=== PATIENT | male | born 1960 | race Hispanic/Latino ===

== ENCOUNTER 2018-01-15 04:06 | Emergency (ER) | payer BC ==
[2018-01-15] MEDS ORDERED: ONDANSETRON HCL 4 MG/2 ML VIAL ONE (04:32)
[2018-01-15] MEDS ORDERED: SODIUM CHLORIDE 0.9% 1000ML 1,000 ML IV ONE (04:32)
[2018-01-15 04:51] LABS: BASOPHILS % (AUTO) 0.6 % (0.0-5.0); EOSINOPHILS % (AUTO) 0.7 % (0.0-8.0); LYMPHOCYTES % (AUTO) 11.7 % (21.0-51.0); MEAN CORPUSCULAR HEMOGLOBIN 29.7 pg (27.0-33.0); MEAN CORPUSCULAR HGB CONC 35.2 g/dL (32.0-36.0); MEAN CORPUSCULAR VOLUME 84.5 fL (79-99); MONOCYTES % (AUTO) 3.9 % (3.0-13.0); NEUTROPHILS % (AUTO) 83.1 % (40.0-77.0); PLATELET COUNT (AUTO) 267 K/uL (130-400); RED BLOOD CELL COUNT(AUTO) 5.09 MIL/uL (4.50-6.20); RED CELL DISTRIBUTION WIDTH 13.1 % (11.0-15.5)
[2018-01-15 04:59] LABS: CREATININE 0.8 mg/dL (0.5-1.5); POTASSIUM 3.8 mmol/L (3.5-5.1)
[2018-01-15 05:02] LABS: INR 0.96 (0.85-1.15); PARTIAL THROMBOPLASTIN TIME 22.9 SEC (26.3-35.5); PROTHROMBIN TIME 10.1 SEC (9.6-11.6)
[2018-01-15 05:06] LABS: ALBUMIN 3.9 g/dL (3.5-5.0); BILIRUBIN,TOTAL 0.5 mg/dL (0.2-1.0); TOTAL PROTEIN, SERUM 7.7 g/dL (6.0-8.3)
== END 2018-01-15 06:26 | disposition home or self-care (01) ==
LOC: EDH 04:06
DX: R51 Headache (principal); R42 Dizziness and giddiness; R11.2 Nausea with vomiting, unspecified; I10 Essential (primary) hypertension; E78.5 Hyperlipidemia, unspecified; E11.9 Type 2 diabetes mellitus without complications; R79.1 Abnormal coagulation profile
CPT/HCPCS: 36415; 70450; 80053; 82550; 83690; 84484; 85025; 85610; 85730; 93005; 96361; 96374; 99285; J2405; J7030

== ENCOUNTER → 2020-01-28 | Outpatient (CLI) | payer OTHER | END | disposition home or self-care (01) | LOC: RAH 10:32 | PROVIDERS: ATTEND Nurse Practitioner Adult Health | DX: Z13.6 Encounter for screening for cardiovascular disorders (principal) | CPT/HCPCS: 75571 ==

== ENCOUNTER 2020-09-12 10:18 | Inpatient (IN) | payer BC, OTHER ==
[~2020-09-12] VITALS: Ht 167.6 cm; Wt 87.4 kg
[2020-09-12 10:41] LABS: EOSINOPHILS % (AUTO) 3.1 % (0.0-8.0); HEMATOCRIT 40.7 % (42-54); LYMPHOCYTES % (AUTO) 19.3 % (21.0-51.0); MEAN CORPUSCULAR HEMOGLOBIN 28.9 pg (27.0-33.0); MEAN CORPUSCULAR HGB CONC 34.4 g/dL (32.0-36.0); MEAN CORPUSCULAR VOLUME 83.9 fL (79-99); MONOCYTES % (AUTO) 8.9 % (3.0-13.0); NEUTROPHILS % (AUTO) 67.5 % (40.0-77.0); PLATELET COUNT (AUTO) 217 K/uL (130-400); RED BLOOD CELL COUNT(AUTO) 4.85 MIL/uL (4.50-6.20); RED CELL DISTRIBUTION WIDTH 12.3 % (11.0-15.5); WHITE BLOOD COUNT (AUTO) 5.9 K/uL (4.8-10.8)
[2020-09-12 10:53] LABS: CREATININE 0.9 mg/dL (0.5-1.5)
[2020-09-12 10:55] LABS: PROTHROMBIN TIME 10.9 SEC (9.6-11.6)
[2020-09-12 10:56] LABS: PARTIAL THROMBOPLASTIN TIME 24.9 SEC (26.3-35.5)
[2020-09-12 11:02] LABS: ALBUMIN 3.8 g/dL (3.5-5.0); BILIRUBIN,TOTAL 0.4 mg/dL (0.2-1.0); TOTAL PROTEIN, SERUM 7.6 g/dL (6.0-8.3)
[2020-09-12] MEDS ORDERED: ASPIRIN 325MG EC TAB PO ONE (14:53)
[2020-09-12] MEDS ORDERED: INSULIN HUMULIN R 100 UNIT/ML 3ML ONE (17:53)
[2020-09-12] MEDS: ATORVASTATIN 20 MG TABLET PO SCH (21:00)
[2020-09-13] MEDS ORDERED: FAMOTIDINE 20MG VIAL IV ONE ×2 (08:18→20:05)
[2020-09-13] MEDS ORDERED: ASPIRIN 325MG EC TAB PO ONE (08:18)
[2020-09-13 08:23] LABS: HEMOGLOBIN A1C 11.8 % (4.0-6.0)
[2020-09-13 08:24] LABS: CHOLESTEROL 199 mg/dL (<200); HDL CHOLESTEROL 32 mg/dL (29-71); LDL DIRECT 109 mg/dL (0-99); TRIGLYCERIDES 380 mg/dL (30-200)
[2020-09-13] MEDS ORDERED: IOHEXOL-350 75 ML VIAL IV ONE (11:25)
[2020-09-13] MEDS ORDERED: ENOXAPARIN SODIUM 40 MG/0.4 ML SYRINGE SQ ONE (12:27)
[2020-09-13] MEDS ORDERED: INSULIN HUMULIN R 100 UNIT/ML 3ML ONE ×3 (12:28→20:06)
[2020-09-13] MEDS ORDERED: ATORVASTATIN 20 MG TABLET ONE (20:04)
[2020-09-13] MEDS: INSULIN GLARGINE 100 UNITS/ML 10 ML VIAL SQ SCH (22:15)
[2020-09-13] MEDS ORDERED: AMLODIPINE 5 MG TAB ONE (23:03)
[2020-09-14] MEDS: AMLODIPINE 5 MG TAB PO SCH (09:00)
[2020-09-14] MEDS: LISINOPRIL 10 MG TABLET PO SCH (09:00)
[2020-09-14] MEDS: ASPIRIN 325MG EC TAB PO SCH (09:00)
[2020-09-14] MEDS: ENOXAPARIN SODIUM 40 MG/0.4 ML SYRINGE SQ SCH (09:00)
[2020-09-14] MEDS ORDERED: ASPIRIN 325 MG TABLET ONE (09:19)
[2020-09-14] MEDS ORDERED: HYDRALAZINE 25MG TABLET ONE ×2 (09:19→20:17)
[2020-09-14] MEDS ORDERED: LISINOPRIL 5 MG TABLET ONE (09:19)
[2020-09-14] MEDS ORDERED: ATORVASTATIN 20 MG TABLET ONE ×2 (09:20→20:18)
[2020-09-14] MEDS ORDERED: AMLODIPINE 5 MG TAB ONE (09:20)
[2020-09-14] MEDS ORDERED: CARVEDILOL 25 MG TABLET PO ONE ×2 (09:20→20:18)
[2020-09-14] MEDS ORDERED: ENOXAPARIN SODIUM 40 MG/0.4 ML SYRINGE SQ ONE (09:21)
[2020-09-14] MEDS ORDERED: CARV25TA PO ×2 (11:37→22:49)
[2020-09-14] MEDS ORDERED: GADODIAMIDE 10 MMOL/20 ML VIAL IV ONE (13:17)
[2020-09-14] MEDS ORDERED: FAMOTIDINE 20MG VIAL IV ONE (20:19)
[2020-09-14] MEDS ORDERED: INSULIN HUMULIN R 100 UNIT/ML 3ML ONE (20:20)
[2020-09-14] MEDS: HYDRALAZINE HCL 10 MG TABLET PO SCH (21:00)
[2020-09-14] MEDS: CARVEDILOL 12.5 MG TABLET PO SCH (21:00)
[2020-09-14] MEDS: INSULIN R PO SS1 SQ SCH (21:00)
[2020-09-14] MEDS: FAMOTIDINE 20MG VIAL IV SCH (21:00)
[2020-09-14] MEDS: ATORVASTATIN 20 MG TABLET PO SCH (21:00)
[2020-09-14] MEDS: INSULIN GLARGINE 100 UNITS/ML 10 ML VIAL SQ SCH (21:00)
[2020-09-14 22:25] VITALS: BP 140/92
[2020-09-14] MEDS ORDERED: HYDR-4154 PO (22:48)
[2020-09-14] MEDS ORDERED: METF500S7 PO (22:49)
[2020-09-14] MEDS ORDERED: BENA40TA92 PO (22:51)
[2020-09-14] MEDS ORDERED: AMLO-257 PO (22:51)
[2020-09-14] MEDS ORDERED: CLON0.1T PO (22:52)
[2020-09-14] MEDS ORDERED: GLIP10TA9 PO (22:53)
[2020-09-15 03:42] VITALS: BP 118/81
[2020-09-15 07:15] VITALS: BP 139/88
[2020-09-15] MEDS: INSULIN R PO SS1 SQ SCH ×2 (07:30→12:55)
[2020-09-15] MEDS ORDERED: CLOPIDOGREL 75MG TAB PO SCH (09:00)
[2020-09-15] MEDS: FAMOTIDINE 20MG VIAL IV SCH (09:37)
[2020-09-15] MEDS: HYDRALAZINE HCL 10 MG TABLET PO SCH (09:38)
[2020-09-15] MEDS: ASPIRIN 325MG EC TAB PO SCH (09:39)
[2020-09-15] MEDS: ENOXAPARIN SODIUM 40 MG/0.4 ML SYRINGE SQ SCH (09:40)
[2020-09-15] MEDS: CARVEDILOL 12.5 MG TABLET PO SCH (09:40)
[2020-09-15] MEDS: AMLODIPINE 5 MG TAB PO SCH (09:40)
[2020-09-15 10:45] VITALS: BP 138/88
[2020-09-15] MEDS: LISINOPRIL 10 MG TABLET PO SCH (12:45)
[2020-09-15] MEDS ORDERED: ATOR20TA65 PO (13:25)
[2020-09-15] MEDS ORDERED: ASPI-1443 PO (16:15)
[2020-09-15] MEDS ORDERED: CLOP75TA14 PO (16:15)
[2020-09-15] MEDS ORDERED: HYDRALAZINE 25MG TABLET PO SCH (21:00)
[2020-09-15] MEDS ORDERED: AMLODIPINE 5 MG TAB PO SCH (21:00)
[2020-09-15] MEDS ORDERED: GLIPIZIDE 5 MG TABLET PO SCH (21:00)
[2020-09-15] MEDS ORDERED: CARVEDILOL 25 MG TABLET PO SCH (21:00)
[2020-09-16] MEDS ORDERED: METFORMIN HCL 500 MG TABLET PO SCH (08:00)
[2020-09-16] MEDS ORDERED: BENAZEPRIL HCL 10 MG TABLET PO SCH (09:00)
[2020-09-16] MEDS ORDERED: CLONIDINE HCL 0.1 MG TABLET PO SCH (09:00)
== END 2020-09-15 17:49 | disposition home or self-care (01) | DRG 66 ==
LOC: EDH 10:18 → EDHIP 13:25 → 4BH 09-14 22:20
PROVIDERS: ADMIT Family Medicine; ATTEND Family Medicine
DX: I63.50 Cerebral infarction due to unspecified occlusion or stenosis of unspecified cerebral artery (principal); I10 Essential (primary) hypertension; E78.2 Mixed hyperlipidemia; E11.9 Type 2 diabetes mellitus without complications; Z20.822 Contact with and (suspected) exposure to COVID-19; Z82.2 Family history of deafness and hearing loss; Z83.3 Family history of diabetes mellitus; Z82.49 Family history of ischemic heart disease and other diseases of the circulatory system
CPT/HCPCS: 36415; 70450; 70544; 70549; 70551; 71045; 71275; 80053; 80061; 82550; 82948; 83036; 84484; 85025; 85610; 85730; 87426; 92522; 92610; 93005; 93306; 93356; 93880; A9579; G0378; J1650; J1815; J3490; Q9967; U0003

== ENCOUNTER 2020-09-21 13:55 | Inpatient (IN) | payer BC ==
[~2020-09-21] VITALS: Ht 170.2 cm; Wt 86.6 kg
[~2020-09-21 13:55] MED LIST: AMLO-257 PO; ASPI-1443 PO; ATOR20TA65 PO; BENA40TA92 PO; CARV25TA PO; CLON0.1T PO; CLOP75TA14 PO; GLIP10TA9 PO; HYDR-4154 PO; METF500S7 PO
[2020-09-21] MEDS ORDERED: IOHEXOL-350 75 ML VIAL IV ONE (14:05)
[2020-09-21 14:48] LABS: EOSINOPHILS % (AUTO) 3.7 % (0.0-8.0); HEMATOCRIT 41.7 % (42-54); LYMPHOCYTES % (AUTO) 21.5 % (21.0-51.0); MEAN CORPUSCULAR HEMOGLOBIN 29.2 pg (27.0-33.0); MEAN CORPUSCULAR HGB CONC 34.8 g/dL (32.0-36.0); MEAN CORPUSCULAR VOLUME 84.1 fL (79-99); MONOCYTES % (AUTO) 9.4 % (3.0-13.0); NEUTROPHILS % (AUTO) 64.3 % (40.0-77.0); PLATELET COUNT (AUTO) 257 K/uL (130-400); RED BLOOD CELL COUNT(AUTO) 4.96 MIL/uL (4.50-6.20); RED CELL DISTRIBUTION WIDTH 12.5 % (11.0-15.5); WHITE BLOOD COUNT (AUTO) 7.2 K/uL (4.8-10.8)
[2020-09-21 15:03] LABS: INR 1.04 (0.85-1.15); PROTHROMBIN TIME 11.3 SEC (9.6-11.6)
[2020-09-21 15:05] LABS: PARTIAL THROMBOPLASTIN TIME 25.9 SEC (26.3-35.5); POTASSIUM 3.9 mmol/L (3.5-5.1)
[2020-09-21 15:10] LABS: ALBUMIN 3.6 g/dL (3.5-5.0); BILIRUBIN,TOTAL 0.4 mg/dL (0.2-1.0); TOTAL PROTEIN, SERUM 7.5 g/dL (6.0-8.3)
[2020-09-21] MEDS ORDERED: LABETALOL 20MG VIAL IV PRN (16:45)
[2020-09-21] MEDS ORDERED: ASPIRIN 81MG CHEW TAB PO SCH (17:55)
[2020-09-21] MEDS ORDERED: CLOPIDOGREL 75MG TAB PO SCH (18:00)
[2020-09-21 18:52] LABS: THYROID STIMULATING HORMONE 1.26 uIU/mL (0.36-3.74)
[2020-09-21] MEDS ORDERED: ASPIRIN 81MG CHEW TAB ONE (20:37)
[2020-09-21] MEDS ORDERED: ATORVASTATIN 40 MG TABLET ONE (20:37)
[2020-09-21] MEDS ORDERED: CLOPIDOGREL 75MG TAB ONE (20:37)
[2020-09-21] MEDS ORDERED: ATORVASTATIN 20 MG TABLET PO SCH (21:00)
[2020-09-22 12:22] LABS: APPEARANCE,URINE Clear (CLEAR); BILIRUBIN,URINE Negative (NEGATIVE); COLOR,URINE Yellow (YELLOW); GLUCOSE, URINE (UA) >=1000 mg/dL (NEGATIVE); KETONES,URINE Negative (NEGATIVE); LEUKOCYTE ESTERASE ,URINE Negative (NEGATIVE); NITRATE,URINE Negative (NEGATIVE); OCCULT BLOOD,URINE Negative (NEGATIVE); PROTEIN,URINE POS 2+ mg/dL (NEGATIVE); UROBILINOGEN,URINE 0.2 mg/dL (0.2-1.0)
[2020-09-22 12:38] LABS: BACTERIA,URINE Few /HPF (None Seen); RBC,URINE 0-1 /HPF (0-1); WBC,URINE 0-1 /HPF (0-1)
[2020-09-22] MEDS: GLIPIZIDE 5 MG TABLET PO SCH (18:00)
[2020-09-22] MEDS: CARVEDILOL 25 MG TABLET PO SCH (21:00)
[2020-09-22] MEDS: ATORVASTATIN 20 MG TABLET PO SCH (21:00)
[2020-09-22] MEDS: AMLODIPINE 5 MG TAB PO SCH (21:00)
[2020-09-22] MEDS ORDERED: NON-FORMULARY MEDICATION 1 EACH (Glipizide 10 MG) PO SCH (21:00)
[2020-09-22] MEDS ORDERED: NON-FORMULARY MEDICATION 1 EACH (Hydralazine HCl 50 MG) PO SCH (21:00)
[2020-09-22] MEDS: HYDRALAZINE 25MG TABLET PO SCH (21:00)
[2020-09-22] MEDS ORDERED: ASPIRIN 81MG CHEW TAB ONE (22:03)
[2020-09-22] MEDS ORDERED: ATORVASTATIN 40 MG TABLET ONE (22:04)
[2020-09-22] MEDS ORDERED: CLOPIDOGREL 75MG TAB ONE (22:04)
[2020-09-23] VITALS (7 sets, daily range): BP systolic 130–160; BP diastolic 80–107
[2020-09-23] MEDS ORDERED: MECL-160 PO (03:53)
[2020-09-23 04:36] LABS: EOSINOPHILS % (AUTO) 3.3 % (0.0-8.0); LYMPHOCYTES % (AUTO) 24.4 % (21.0-51.0); MEAN CORPUSCULAR HEMOGLOBIN 28.9 pg (27.0-33.0); MONOCYTES % (AUTO) 9.8 % (3.0-13.0); NEUTROPHILS % (AUTO) 61.1 % (40.0-77.0); PLATELET COUNT (AUTO) 283 K/uL (130-400); RED BLOOD CELL COUNT(AUTO) 4.94 MIL/uL (4.50-6.20); RED CELL DISTRIBUTION WIDTH 12.5 % (11.0-15.5); WHITE BLOOD COUNT (AUTO) 9.1 K/uL (4.8-10.8)
[2020-09-23 04:51] LABS: ALBUMIN 3.7 g/dL (3.5-5.0); BILIRUBIN,TOTAL 0.5 mg/dL (0.2-1.0); CREATININE 1.2 mg/dL (0.5-1.5); POTASSIUM 4.2 mmol/L (3.5-5.1); TOTAL PROTEIN, SERUM 7.9 g/dL (6.0-8.3)
[2020-09-23] MEDS: GLIPIZIDE 5 MG TABLET PO SCH ×2 (06:32→16:20)
[2020-09-23] MEDS ORDERED: ASPIRIN 81MG CHEW TAB ONE (07:11)
[2020-09-23] MEDS: ASPIRIN 81 MG EC TAB PO SCH (07:55)
[2020-09-23] MEDS: CLOPIDOGREL 75MG TAB PO SCH (07:55)
[2020-09-23] MEDS: CARVEDILOL 25 MG TABLET PO SCH ×2 (07:56→23:40)
[2020-09-23] MEDS: BENAZEPRIL HCL 10 MG TABLET PO SCH (07:56)
[2020-09-23] MEDS: AMLODIPINE 5 MG TAB PO SCH ×2 (07:56→23:39)
[2020-09-23] MEDS: HYDRALAZINE 25MG TABLET PO SCH ×2 (07:57→23:41)
[2020-09-23] MEDS ORDERED: BENAZEPRIL HCL 40 MG PO SCH (09:00)
[2020-09-23] MEDS: ATORVASTATIN 20 MG TABLET PO SCH (23:42)
[2020-09-24 03:39] VITALS: BP 126/80
[2020-09-24 05:48] LABS: HEMATOCRIT 43.7 % (42-54); MEAN CORPUSCULAR HEMOGLOBIN 28.6 pg (27.0-33.0); MEAN CORPUSCULAR HGB CONC 33.9 g/dL (32.0-36.0); MEAN CORPUSCULAR VOLUME 84.5 fL (79-99); RED BLOOD CELL COUNT(AUTO) 5.17 MIL/uL (4.50-6.20); RED CELL DISTRIBUTION WIDTH 12.4 % (11.0-15.5); WHITE BLOOD COUNT (AUTO) 9.1 K/uL (4.8-10.8)
[2020-09-24 06:12] LABS: ALBUMIN 3.5 g/dL (3.5-5.0); BILIRUBIN,TOTAL 0.5 mg/dL (0.2-1.0); CREATININE 0.9 mg/dL (0.5-1.5); POTASSIUM 3.9 mmol/L (3.5-5.1); TOTAL PROTEIN, SERUM 7.8 g/dL (6.0-8.3)
[2020-09-24] MEDS: GLIPIZIDE 5 MG TABLET PO SCH ×2 (10:09→17:41)
[2020-09-24] MEDS: CARVEDILOL 25 MG TABLET PO SCH ×2 (10:10→20:50)
[2020-09-24] MEDS: CLOPIDOGREL 75MG TAB PO SCH (10:10)
[2020-09-24] MEDS: AMLODIPINE 5 MG TAB PO SCH ×2 (10:10→20:48)
[2020-09-24] MEDS: ASPIRIN 81 MG EC TAB PO SCH (10:11)
[2020-09-24] MEDS: HYDRALAZINE 25MG TABLET PO SCH ×2 (10:11→20:48)
[2020-09-24] MEDS: BENAZEPRIL HCL 10 MG TABLET PO SCH (10:11)
[2020-09-24 10:16] VITALS: BP 147/97
[2020-09-24 12:59] VITALS: BP 115/69
[2020-09-24 16:56] VITALS: BP 136/89
[2020-09-24 19:42] VITALS: BP 146/94
[2020-09-24] MEDS: ATORVASTATIN 20 MG TABLET PO SCH (20:48)
[2020-09-24 23:59] VITALS: BP 137/65
[2020-09-25 04:08] LABS: HEMATOCRIT 42.6 % (42-54); MEAN CORPUSCULAR HEMOGLOBIN 28.5 pg (27.0-33.0); MEAN CORPUSCULAR HGB CONC 33.3 g/dL (32.0-36.0); MEAN CORPUSCULAR VOLUME 85.5 fL (79-99); RED BLOOD CELL COUNT(AUTO) 4.98 MIL/uL (4.50-6.20); RED CELL DISTRIBUTION WIDTH 12.3 % (11.0-15.5); WHITE BLOOD COUNT (AUTO) 8.3 K/uL (4.8-10.8)
[2020-09-25 04:11] VITALS: BP 134/88
[2020-09-25 04:40] LABS: ALBUMIN 3.5 g/dL (3.5-5.0); BILIRUBIN,TOTAL 0.3 mg/dL (0.2-1.0); CREATININE 1.1 mg/dL (0.5-1.5); POTASSIUM 3.9 mmol/L (3.5-5.1); TOTAL PROTEIN, SERUM 7.6 g/dL (6.0-8.3)
[2020-09-25] MEDS: GLIPIZIDE 5 MG TABLET PO SCH ×2 (05:56→16:43)
[2020-09-25] MEDS: TRAMADOL HCL 50 MG TABLET PO PRN (06:13)
[2020-09-25 08:00] VITALS: BP 151/92
[2020-09-25] MEDS: BENAZEPRIL HCL 10 MG TABLET PO SCH (09:27)
[2020-09-25] MEDS: HYDRALAZINE 25MG TABLET PO SCH ×2 (09:27→20:35)
[2020-09-25] MEDS: ASPIRIN 81 MG EC TAB PO SCH (09:27)
[2020-09-25] MEDS: AMLODIPINE 5 MG TAB PO SCH ×2 (09:28→20:34)
[2020-09-25] MEDS: CARVEDILOL 25 MG TABLET PO SCH ×2 (09:28→20:35)
[2020-09-25] MEDS: CLOPIDOGREL 75MG TAB PO SCH (09:29)
[2020-09-25 12:00] VITALS: BP 127/92
[2020-09-25 16:58] VITALS: BP 146/94
[2020-09-25 19:07] VITALS: BP_SYST 125; BP_SYST 147; BP_DIAS 69; BP_DIAS 94
[2020-09-25] MEDS: ATORVASTATIN 20 MG TABLET PO SCH (20:34)
[2020-09-25 23:54] VITALS: BP 135/83
[2020-09-26 03:00] VITALS: BP 137/82
[2020-09-26] MEDS: GLIPIZIDE 5 MG TABLET PO SCH ×2 (06:43→17:38)
[2020-09-26 08:21] VITALS: BP 159/100
[2020-09-26] MEDS: CLOPIDOGREL 75MG TAB PO SCH (09:19)
[2020-09-26] MEDS: ASPIRIN 81 MG EC TAB PO SCH (09:19)
[2020-09-26] MEDS: CARVEDILOL 25 MG TABLET PO SCH (09:19)
[2020-09-26] MEDS: AMLODIPINE 5 MG TAB PO SCH (09:19)
[2020-09-26] MEDS: HYDRALAZINE 25MG TABLET PO SCH (09:20)
[2020-09-26] MEDS: TRAMADOL HCL 50 MG TABLET PO PRN (09:28)
[2020-09-26] MEDS: BENAZEPRIL HCL 10 MG TABLET PO SCH (10:31)
[2020-09-26 12:00] VITALS: BP 122/77
[2020-09-26 17:27] VITALS: BP 164/100
== END 2020-09-26 18:35 | disposition home or self-care (01) | DRG 65 ==
LOC: EDH 13:55 → EDHIP 16:45 → 4BH 09-22 23:23
PROVIDERS: ADMIT Internal Medicine; ATTEND Internal Medicine
DX: I63.9 Cerebral infarction, unspecified (principal); G81.94 Hemiplegia, unspecified affecting left nondominant side; I10 Essential (primary) hypertension; E78.5 Hyperlipidemia, unspecified; E11.51 Type 2 diabetes mellitus with diabetic peripheral angiopathy without gangrene; R47.1 Dysarthria and anarthria; G51.0 Bell's palsy; Z79.82 Long term (current) use of aspirin; Z87.891 Personal history of nicotine dependence; Z90.49 Acquired absence of other specified parts of digestive tract; Z86.73 Personal history of transient ischemic attack (TIA), and cerebral infarction without residual deficits; Z83.3 Family history of diabetes mellitus; Z82.49 Family history of ischemic heart disease and other diseases of the circulatory system
CPT/HCPCS: 36415; 70450; 70496; 70498; 70551; 71045; 72072; 72100; 73620; 74230; 80053; 80061; 81001; 82948; 83036; 83880; 84443; 84484; 85025; 85027; 85610; 85651; 85730; 92522; 92610; 92611; 93005; 93306; 97039; G0378; Q9967